=== PATIENT | male | born 1950 | race Caucasian/White ===

== ENCOUNTER 2020-05-19 06:05 | Inpatient (IN) ==
[~2020-05-19 06:05] MED LIST: ASPIRIN 325 MG TABLET PO ONE; DIAZEPAM 5 MG TABLET PO ONE; MAGNESIUM SULF RIDER 2 GM in PREMIX 1 EACH IV PRN; POTASSIUM CHLORIDE RIDER 10 MEQ in PREMIX 1 EACH IV PRN; diphenhydrAMINE CAP 25 MG CAPSULE PO ONE
[2020-05-19] MEDS ORDERED: DIAZEPAM 5 MG TABLET ONE (06:48)
[2020-05-19] MEDS ORDERED: diphenhydrAMINE CAP 25 MG CAPSULE ONE (06:48)
[2020-05-19] MEDS: SODIUM CHLORIDE 0.9% 1,000 ML IV SCH ×2 (06:51→15:45)
[2020-05-19] MEDS ORDERED: NITROGLYCERIN DRIP 50 MG/250 ML BOTTLE IV ONE (07:05)
[2020-05-19] MEDS ORDERED: LIDOCAINE 1% 20 ML VIAL ONE (07:05)
[2020-05-19] MEDS ORDERED: VERAPAMIL 5 MG/2 ML VIAL ONE (07:06)
[2020-05-19] MEDS ORDERED: fentaNYL 100 MCG/2 ML VIAL ONE (07:06)
[2020-05-19] MEDS ORDERED: MIDAZOLAM 2 MG/2 ML VIAL ONE (07:06)
[2020-05-19] MEDS ORDERED: ENOXAPARIN 30 MG/0.3 ML SYRINGE ONE (07:22)
[2020-05-19] MEDS ORDERED: DEXTROSE 50% 25 GM/50 ML VIAL IV PRN ×2 (08:05→08:12)
[2020-05-19] MEDS ORDERED: GLUCAGON 1 MG VIAL IM PRN ×2 (08:05→08:12)
[2020-05-19] MEDS ORDERED: LORATADINE 10 MG TABLET PO PRN (08:16)
[2020-05-19] MEDS ORDERED: [UNRECOGNIZED DRUG - OTHER] PO SCH ×2 (09:00→13:00)
[2020-05-19] MEDS: ASPIRIN CHEW 81 MG TABLET PO SCH (10:56)
[2020-05-19] MEDS: MULTIVITAMIN (CENTRUM) TABLET PO SCH (10:57)
[2020-05-19] MEDS: MELOXICAM 7.5 MG TABLET PO SCH ×2 (10:57→21:41)
[2020-05-19] MEDS: PANTOPRAZOLE 40 MG TABLET PO SCH (10:57)
[2020-05-19] MEDS: MELATONIN 3 MG TABLET PO SCH (10:57)
[2020-05-19] MEDS: MULTIVITAMIN (BEROCCA) TABLET PO SCH (10:57)
[2020-05-19] MEDS: INSULIN REGULAR 100 UNIT/ML SUBCUT SCH ×3 (12:47→21:42)
[2020-05-19] MEDS ORDERED: PITAVASTATIN CALCIUM 4 MG PO SCH (21:00)
[2020-05-19] MEDS: COENZYME Q10 100 MG CAPSULE PO SCH (21:39)
[2020-05-19] MEDS: lisinopriL 10 MG TABLET PO SCH (21:41)
[2020-05-19] MEDS: ROSUVASTATIN 20 MG TABLET PO SCH (21:41)
[2020-05-20 03:26] LABS: ABG Base Excess 2.4 MMOL/L (-2.5-2.5); ABG HCO3 26.4 MMOL/L (20-26); ABG Oxygen Saturation 93.8 % (95-100); ABG PCO2 49.3 MM HG (35-48); ABG PH 7.372 (7.35-7.45); ABG PO2 71.5 MM HG (80-95); ABG TCO2 24.7 MMOL/L (23-27)
[2020-05-20] MEDS ORDERED: ENOXAPARIN 40 MG/0.4 ML SYRINGE SUBCUT SCH (06:00)
[2020-05-20 06:38] LABS: Basophils % 0.7 % (0.0-0.8); Eosinophils # 0.3 10*3/uL (0.0-0.87); Eosinophils % 4.9 % (0.00-10.9); Hemoglobin 14.5 GM/DL (14.0-18.0); Immature Granulocytes % 0.2 %; Immature Granulocytes Absolute 0.01 #; Lymphocytes # 1.4 10*3/uL (1.4-4.0); Lymphocytes % 25.1 % (21.2-54.2); Mean Corpuscular HGB Conc 33.7 GM/DL (32-36); Mean Corpuscular Volume 93.5 FL (87-102); Monocytes % 11.2 % (1.7-12.7); Neutrophils % 57.9 % (38.7-73.9); Platelet Count 149 T/CUMM (130-400); Red Cell Distribution Width 12.7 % (9.3-17.3); White Blood Count 5.5 T/CUMM (4-12)
[2020-05-20 07:14] LABS: Albumin 3.3 G/DL (3.4-5.0); Bilirubin,Total 0.8 MG/DL (0.2-1.0); Calcium 8.9 MG/DL (8.5-10.1); Osmolality,Calculated 284.1 MOS/KG (273-304); Risk Ratio 3.83; Total Protein 6.5 G/DL (6.4-8.3)
[2020-05-20] MEDS: MULTIVITAMIN (BEROCCA) TABLET PO SCH (09:13)
[2020-05-20] MEDS: INSULIN REGULAR 100 UNIT/ML SUBCUT SCH ×4 (09:13→20:19)
[2020-05-20] MEDS: ASCORBIC ACID 500 MG TABLET PO SCH ×2 (09:14→20:19)
[2020-05-20] MEDS: MELOXICAM 7.5 MG TABLET PO SCH ×2 (09:14→20:19)
[2020-05-20] MEDS: MULTIVITAMIN (CENTRUM) TABLET PO SCH (09:14)
[2020-05-20] MEDS: ASPIRIN CHEW 81 MG TABLET PO SCH (09:14)
[2020-05-20] MEDS: CHLORHEXIDINE 4% SOLN 118 ML BOTTLE TOP SCH ×3 (09:16→20:19)
[2020-05-20] MEDS: CHLORHEXIDINE 0.12% ORAL RINSE 60 ML BOTTLE SWISH/SPIT SCH ×2 (09:18→20:19)
[2020-05-20] MEDS: PANTOPRAZOLE 40 MG TABLET PO SCH (09:24)
[2020-05-20] MEDS: MELATONIN 3 MG TABLET PO SCH (09:25)
[2020-05-20] MEDS ORDERED: SODIUM CHLORIDE 0.9% 1,000 ML IV SCH (13:30)
[2020-05-20] MEDS: ROSUVASTATIN 20 MG TABLET PO SCH (20:18)
[2020-05-20] MEDS: COENZYME Q10 100 MG CAPSULE PO SCH (20:18)
[2020-05-20] MEDS: lisinopriL 10 MG TABLET PO SCH (20:19)
[2020-05-20 20:35] VITALS: BP 152/93
[2020-05-20] MEDS ORDERED: MELATONIN 3 MG TABLET PO SCH (21:00)
[2020-05-21] MEDS ORDERED: CEFUROXIME INJ 1,500 MG in SYRINGE 1 EACH IV ONE (05:00)
[2020-05-21] MEDS ORDERED: DIAZEPAM 5 MG TABLET PO ONE (06:00)
== END 2020-05-20 19:49 | disposition hospice, home (50) | DRG 303 ==
LOC: N.CL 06:05 → N.TELEN 09:42
PROVIDERS: ADMIT Internal Medicine Cardiovascular Disease; ATTEND Internal Medicine Cardiovascular Disease
PROC: CLCCHCL (ICD-10-PCS; 2020-05-19 08:15)